=== PATIENT | female | born 1965 | race Caucasian/White ===

== ENCOUNTER → 2019-10-23 10:39 | Outpatient (BNVA) | payer MEDICARE, MEDICAID, SELFPAY | PROVIDERS: Referring Provider Family Medicine; Visit Provider Nurse Practitioner Adult Health | DX: G43.009 Migraine without aura, not intractable, without status migrainosus (principal); G44.40 Drug-induced headache, not elsewhere classified, not intractable; E11.9 Type 2 diabetes mellitus without complications | CPT/HCPCS: 99204 ==

== ENCOUNTER 2024-02-21 15:41 | Outpatient (CLI) | payer MEDICARE, MEDICAID, SELFPAY ==
--- NOTE | 2024-02-21 14:34 | DI.RAD_ITS ---
Exam(s) XR KNEE LT 1V XR STANDING ALIGNMENT EXAM: XR STANDING ALIGNMENT CLINICAL HISTORY: TKR Planning. TECHNIQUE: 2D digital imaging was performed. Standing AP views were performed from the pelvis throu gh the ankles. COMPARISON: CR XR KNEE LT 1V from 02/21/2024 FINDINGS: BONES: No acute fracture is present. No bony destructive lesion is seen. Leg length discrepancy: Prostate 15 millimeter overall leg length discrepancy, with the right femor al head projecting superior to the left. JOINTS: Knees: Right total knee prosthesis. Severe degenerative changes of the medial femoral tibi al joint of the left knee with periarticular spurring. There is varus angulation. The ankle joints are unremarkable. The hip joints are unremarkable. SOFT TISSUE: IUD in place. IMPRESSION: Severe degenerative changes of the medial femoral tibial joint space of the left knee. Right knee pr osthesis is unremarkable.. Proximal 1.5 centimeter overall leg length discrepancy. DATA REPOSITORY: RADIATION DOSE DELIVERED:
== END 2024-02-21 15:42 | disposition home or self-care (01) ==
LOC: DIORS 15:41
PROVIDERS: PCP Physician Assistant; Referring Provider Physician Assistant; Visit Provider Student in an Organized Health Care Education/Training Program
DX: M17.12 Unilateral primary osteoarthritis, left knee (principal)
CPT/HCPCS: 99203; 73560; 77073

== ENCOUNTER → 2024-05-29 07:51 | Outpatient (BNVA) | payer MEDICARE, MEDICAID, SELFPAY | PROVIDERS: PCP Emergency Medicine; Referring Provider Physician Assistant; Visit Provider Student in an Organized Health Care Education/Training Program ==

== ENCOUNTER 2024-09-06 09:43 | Day surgery (SDC) | payer MEDICARE, MEDICAID, SELFPAY ==
[2024-09-06 10:00] VITALS: BP 143/79; PULSE 77; RESP 16; TEMP 36; O2SAT 100
[2024-09-06] MEDS: Acetaminophen 500 MG TAB 1000 MG PO (10:24)
[2024-09-06] MEDS: Celecoxib 200 MG CAP 400 MG PO (10:24)
[2024-09-06] MEDS: Gabapentin 300 MG CAP PO (10:25)
[2024-09-06] MEDS: Lactated Ringers 1,000 ML 80 ML IV (10:54)
--- NOTE | 2024-09-06 11:08 | ANES.PREOP_ITS ---
General Info Date of Service Date Performed: 09/06/24 Height: 5 ft 1 in Weight: 77.2 kg Body Mass Index (BMI): 32.1 Surgical Procedure: Operation Date: 09/06/24 13:10 Proposed Procedure Side Surgeon p Knee Total Arthroplasty Left Herminio Suazo MD Meds Allergies and Home Medications Allergies Allergy/AdvReac Type Severity Reaction Status Date / Time atorvastatin Allergy Liver pain Verified 09/06/24 10:16 fentanyl AdvReac Severe Other (See Verified 09/06/24 10:16 Comment) animal dander Allergy Mild Rhinitis Uncoded 09/06/24 10:16 Environmental Allergy Mild Rhinitis Uncoded 09/06/24 10:16 Fragrances Allergy Mild Headache, Uncoded 09/06/24 10:16 SOB Home Medication ?Medication ?Instructions ?Recorded metoprolol succinate 50 mg capsule 50 mg PO HS 05/19/21 sprinkle, ext. release 24 hr aspirin 81 mg tablet,delayed 81 mg PO DAILY 01/13/23 release (Adult Aspirin Regimen) alirocumab 75 mg/mL subcutaneous 75 mg subcut Q2W 10/18/23 pen injector (Praluent Pen) mecobalamin (vitamin B12) 500 mcg 500 mcg PO DAILY 10/18/23 chewable tablet multivitamin 0.5 tab PO DAILY 10/18/23 omeprazole 40 mg capsule,delayed 40 mg PO DAILY 10/19/23 release cholecalciferol (vitamin D3) 25 25 mcg PO DAILY 12/07/23 mcg (1,000 unit) capsule psyllium husk 3.4 gram/6 gram oral 3.4 g PO DIRECTED 02/21/24 powder (OneLAX Daily Fiber) gabapentin 100 mg capsule 100 mg PO TID 06/14/24 glimepiride 2 mg tablet 2 mg PO DAILY 06/14/24 magnesium gluconate 500 mg tablet 500 mg PO DAILY 06/14/24 tirzepatide 5 mg/0.5 mL 5 mg subcut DIRECTED 09/05/24 subcutaneous pen injector (Mounjaro) Current Visit Medications: Current Medications Generic Name Dose Route Start Last Admin Trade Name Freq PRN Reason Stop Dose Admin Acetaminophen 1,000 mg 09/06/24 06:00 09/06/24 10:24 Acetaminophen 500 Mg Tab PO 09/06/24 23:59 1,000 mg PREOP IRINA Administration Acetaminophen 1,000 mg 09/06/24 07:38 Acetaminophen 500 Mg Tab PO 10/06/24 07:37 TID PRN PRN Analgesia Celecoxib 400 mg 09/06/24 06:00 09/06/24 10:24 Celecoxib 200 Mg Cap PO 09/06/24 23:59 400 mg PREOP IRINA Administration Docusate Sodium 100 mg 09/06/24 07:38 Docusate Sodium 100 Mg Cap PO 10/06/24 07:37 BID PRN PRN Constipation Gabapentin 300 mg 09/06/24 06:00 09/06/24 10:25 Gabapentin 300 Mg Cap PO 09/06/24 23:59 300 mg PREOP IRINA Administration Ringer's Solution 1,000 mls @ 80 mls/hr 09/06/24 06:00 09/06/24 10:54 IV 09/06/24 23:59 80 mls/hr INFUSION IRINA Administration Cefazolin Sodium/Dextrose 2 gm in 50 mls @ 100 mls/hr 09/06/24 06:00 Ancef Duplex IVPB 09/06/24 23:59 PREOP IRINA Tranexamic Acid/Sodium Chloride 1,000 mg in 100 mls @ 600 mls/hr 09/06/24 06:00 IVPB 09/06/24 23:59 PREOP IRINA IV Miscellaneous Supplies 1 each 09/06/24 06:00 Iv Access IV 09/06/24 23:59 DIRECTED IRINA Ondansetron HCl 4 mg 09/06/24 07:38 Ondansetron 4 Mg/2 Ml Vial IVP 10/06/24 07:37 Q6H PRN PRN Nausea Oxycodone HCl 0 mg 09/06/24 07:38 Oxycodone 5 Mg Tab PO 10/06/24 07:37 Q3H PRN PRN Pain Polyethylene Glycol 17 gm 09/06/24 07:38 Polyethylene Glycol 3350 17 Gm Packet PO 10/06/24 07:37 BID PRN PRN Constipation Sodium Chloride 0 ml 09/06/24 06:00 Normal Saline Flush 10 Ml Syr IV 09/06/24 23:59 PRN PRN Sodium Chloride 0 ml 09/06/24 06:00 Normal Saline 10 Ml Vial IJ 09/06/24 23:59 DIRECTED PRN Sterile Water 0 ml 09/06/24 06:00 Water,Injection,Sterile 10 Ml Vial IJ 09/06/24 23:59 DIRECTED PRN Tranexamic Acid 1,300 mg 09/06/24 07:38 Tranexamic Acid 650 Mg Tab PO 09/06/24 23:[address] [facility] Active Problems Active Problems: Problem Status Onset Code Conductive hearing loss, external ear Acute H90.2 Osteoarthritis of left knee Chronic M17.12 Impacted cerumen, bilateral Acute H61.23 Acute otitis externa of left ear Acute H60.502 Otalgia of left ear Acute H92.02 Chronic serous otitis media, right ear Acute H65.21 Recurrent acute serous otitis media of right ear Acute H65.04 Headache Acute R51.9 Tobacco abuse Acute Z72.0 Discomfort of right ear Acute H92.01 Sensorineural hearing loss, bilateral Acute H90.3 Conductive hearing loss in right ear Acute H90.11 Acute serous otitis media, right ear Acute H65.01 Medication overuse headache Acute G44.40 Migraine headache without aura Acute G43.009 Heart murmur Acute R01.1 Asthma Chronic J45.909 Obesity Chronic E66.9 Hyperlipidemia Acute E78.5 Type 2 diabetes mellitus Acute E11.9 Conductive hearing loss, bilateral Acute H90.0 Chronic serous otitis media, bilateral Acute H65.23 Allergic rhinitis due to allergen Acute J30.9 Dysfunction of left eustachian tube Acute H69.82 Non-recurrent acute serous otitis media of right ear Acute H65.01 Medical History Medical History History of echocardiogram 01/18/20 delivery delivered Impacted cerumen of left ear Cellulitis of right lower limb Complex regional pain syndrome Lumbago of lumbar region with sciatica Contusion of right knee On [facility] drug therapy Suicidal thoughts Generalized abdominal pain Diarrhea Chest pain Dyspnea on exertion Localized edema Retrograde amnesia pt. states this was stress related Fatigue History of muscle pain Backache symptom Lumbar radiculopathy History of neck pain Arthropathy Idiopathic osteoarthritis Impetigo Abscess of groin Abnormal uterine bleeding Macromastia WATKINS (nonalcoholic steatohepatitis) Enterocolitis Diaphragmatic hernia Intrinsic asthma Acute sinusitis Conductive hearing loss Otalgia Eustachian tube disorder Chronic serous otitis media Chronic infective otitis externa Obstructive sleep apnea Insomnia Depressive disorder Postconcussion syndrome Adjustment disorder Tobacco dependence Surgical History Surgical History History of shoulder surgery Right shoulder, 06/17/2021, [facility] Dr. Mancini History of bunionectomy 2014 History of tympanoplasty of right ear 1979 History of tonsillectomy History of dilation and curettage 1984 H/O tubal ligation Hx of elbow surgery Rt elbow 1998 History of orthopedic surgery History of cholecystectomy 2012 Hx of colonoscopy H/O left knee surgery 2007, 2016-pt states this is suppose to be her RIGHT KNEE not her left done twice History of selective injection of anesthetic agent around lumbar nerve root H/O myringotomy Artificial knee joint present Tobacco Smoking/Tobacco Use Status: Former Tobacco Use Passive smoking exposure: Yes Alcohol Alcohol Intake: current Alcohol intake frequency: a few times a month Substance Use Substance use: Never Substance use type: does not use Vital Signs and Lab Results Vital Signs Most Recent Vital Signs in EMR: Most Recent Vital Signs Temp Pulse Resp BP Pulse Ox 36 C L 77 16 143/79 H 100 09/06/24 10:00 09/06/24 10:00 09/06/24 10:00 09/06/24 10:00 09/06/24 10:00 Point of Care Results Point of Care Results: Finger Stick Blood Glucose 112 09/06/24 10:06 Lab Results Blood Type / Crossmatch: No Data to Display Complete Blood Count: No Data to Display Complete Metabolic Panel: No Data to Display Liver Function Panel: No Data to Display Coagulation Panel: No Data to Display Cardiac Panel: No Data to Display Arterial Blood Gas: No Data to Display Venous Blood Gas: No Data to Display Pancreas Panel: No Data to Display Thyroid Panel: No Data to Display Infectious Disease: No Data to Display Blood Cultures: No Data to Display Toxicology Panel: No Data to Display Anesthesia Assessment and Plan Anesthesia History Personal History: PONV Family History: No Family History of Anesthesia Complications Exercise Tolerance Exercise Tolerance: Metabolic Equivalents>4 Pertinent Negatives Pertinent Negatives: No Symptoms of GERD and No History of CVA/TIA Cardiac & Pulmonary Exam Cardiac Exam: Normal S1/S2 Heart Sounds Pulmonary Exam: Clear Bilateral Breath Sounds Implantable Cardiac Device Does patient have a Pacemaker or an ICD?: No Airway Exam Known Difficult Airway: No Mallampati Class: 2 Mouth Opening: Normal (> 3cm) Thyromental Distance: Less than 3 cm Neck Range of Motion: Full ROM Neck Circumference: Normal Teeth Condition: Normal Dentition ASA Classification ASA Score: ASA 3 Emergency Case?: No NPO Status NPO Status: NPO Clears >2 hours, Solids >8 hours Anesthesia Plan Resuscitation Status: Full Code Anesthesia Technique: Spinal Anesthesia Airway Planned: Natural Airway Pain Management: Surgeon and patient request nerve block Monitors Used: Standard Monitors Preoperative Comments:: Pt. requesting to not use fentanyl, unclear if this was cause of significant N/V after last surgery at [place] 2 years ago. Would like to avoid all medications that make her feel out of control. Discussed that we would minimize anesthesia medications but not guaranty she would not feel like this. She understands and will proceed further.
[2024-09-06 11:09] VITALS: BMI 32.1
--- NOTE | 2024-09-06 12:02 | HPE_ITS ---
Assessment and Plan Assessment and plan (1) Osteoarthritis of left knee: Status: Chronic Assessment and plan: Samuel is a 59-year-old active female who presents today for her left knee. She has worked on her diabetes and has much better glucose control, and within acceptable limits. She desires to proceed with left knee replacement. I once again reviewed surgical replacement of the knee. I reviewed the necessary time for rehabilitation following the procedure. Furthermore, I went over in detail the possible complications of knee replacement. These include but are not limited to bleeding, infection, pain, stiffness, weakness, damage to nerves, damage to vessels, damage to muscle and tendon, fracture, leg length inequality, wound healing complications, instability, component loosening, and blood clot. Questions were answered. I again expressed that this is a surgery to improve functional quality of life. After a review of the presented information and risks, Samuel desired to proceed. History of Present Illness History of Present Illness Chief Complaint: Left Knee Pain Narrative: Samuel is a 59-year-old female who is here today for her left knee. She has known arthritis about the left knee. She has failed other nonoperative options and is here today for left knee replacement. Unfortunately, she has had labile blood glucose control and has had her knee replacement postponed previously. She now has much better control with a regular host of medications and a fructosamine well within acceptable limits. She denies any other recent illness. No sick contacts. No chest pain or shortness of breath. She has had some known irregular heartbeat which is followed by cardiology and is stable. No other acute changes to her medical history. Review of Systems All systems reviewed & are unremarkable except as noted in HPI and below PFSH All Active Problems Conductive hearing loss, external ear (Acute) Osteoarthritis of left knee (Chronic) Impacted cerumen, bilateral (Acute) Acute otitis externa of left ear (Acute) Otalgia of left ear (Acute) Chronic serous otitis media, right ear (Acute) Recurrent acute serous otitis media of right ear (Acute) Headache (Acute) Tobacco abuse (Acute) Discomfort of right ear (Acute) Sensorineural hearing loss, bilateral (Acute) Conductive hearing loss in right ear (Acute) Acute serous otitis media, right ear (Acute) Medication overuse headache (Acute) Migraine headache without aura (Acute) Heart murmur (Acute) Asthma (Chronic) Obesity (Chronic) Hyperlipidemia (Acute) Type 2 diabetes mellitus (Acute) Conductive hearing loss, bilateral (Acute) Chronic serous otitis media, bilateral (Acute) Allergic rhinitis due to allergen (Acute) Dysfunction of left eustachian tube (Acute) Non-recurrent acute serous otitis media of right ear (Acute) Medical History History of echocardiogram 01/18/20 delivery delivered Impacted cerumen of left ear Cellulitis of right lower limb Complex regional pain syndrome Lumbago of lumbar region with sciatica Contusion of right knee On computer terminal operator drug therapy Suicidal thoughts Generalized abdominal pain Diarrhea Chest pain Dyspnea on exertion Localized edema Retrograde amnesia pt. states this was stress related Fatigue History of muscle pain Backache symptom Lumbar radiculopathy History of neck pain Arthropathy Idiopathic osteoarthritis Impetigo Abscess of groin Abnormal uterine bleeding Macromastia WATKINS (nonalcoholic steatohepatitis) Enterocolitis Diaphragmatic hernia Intrinsic asthma Acute sinusitis Conductive hearing loss Otalgia Eustachian tube disorder Chronic serous otitis media Chronic infective otitis externa Obstructive sleep apnea Insomnia Depressive disorder Postconcussion syndrome Adjustment disorder Tobacco dependence Surgical History History of shoulder surgery Right shoulder, 06/17/2021, [facility] Dr. Mancini History of bunionectomy 2014 History of tympanoplasty of right ear 1979 History of tonsillectomy History of dilation and curettage 1984 H/O tubal ligation Hx of elbow surgery Rt elbow 1998 History of orthopedic surgery History of cholecystectomy 2012 Hx of colonoscopy H/O left knee surgery 2007, 2017-pt states this is suppose to be her RIGHT KNEE not her left done twice History of selective injection of anesthetic agent around lumbar nerve root H/O myringotomy Artificial knee joint present Family History Father Heart disease Myocardial infarction Mother COPD (chronic obstructive pulmonary disease) Diabetes Hyperlipidemia Hypertension Cerebrovascular disease Peripheral vascular disease CHF (congestive heart failure) Stroke Heart disease Sister Diabetes Family hx of colon cancer MVA (motor vehicle accident) Brother Diabetes Son Diabetes Daughter No problems noted. Social History Smoking/Tobacco Use Status: Former Tobacco Use Quit Date: 10/18/22 Smoking risk assessment performed?: Yes Alcohol Intake: current Alcohol Intake frequency: a few times a month Drug use: Never Substance use type: does not use Housing: house Number of Children: 2 Pets and animals: Yes Pets and animals: cat(s) What is your relationship status?: Panel score (0-1 are the most socially isolated patients): 0 Seatbelt use: always Do you feel safe at home: Yes Do you feel safe in your relationship?: Yes Meds Allergies and Home Medications Allergies Allergy/AdvReac Type Severity Reaction Status Date / Time atorvastatin Allergy Liver pain Verified 09/06/24 10:16 fentanyl AdvReac Severe Other (See Verified 09/06/24 10:16 Comment) animal dander Allergy Mild Rhinitis Uncoded 09/06/24 10:16 Environmental Allergy Mild Rhinitis Uncoded 09/06/24 10:16 Fragrances Allergy Mild Headache, Uncoded 09/06/24 10:16 SOB Home Medications ?Medication ?Instructions ?Recorded ?Confirmed ?Type metoprolol succinate 50 mg capsule 50 mg PO HS 05/19/21 09/06/24 History sprinkle, ext. release 24 hr aspirin 81 mg tablet,delayed 81 mg PO DAILY 01/13/23 09/05/24 History release (Adult Aspirin Regimen) alirocumab 75 mg/mL subcutaneous 75 mg subcut Q2W 10/18/23 09/05/24 History pen injector (Praluent Pen) mecobalamin (vitamin B12) 500 mcg 500 mcg PO DAILY 10/18/23 09/06/24 History chewable tablet multivitamin 0.5 tab PO DAILY 10/18/23 09/06/24 History omeprazole 40 mg capsule,delayed 40 mg PO DAILY 10/19/23 09/06/24 History release cholecalciferol (vitamin D3) 25 25 mcg PO DAILY 12/07/23 09/06/24 History mcg (1,000 unit) capsule psyllium husk 3.4 gram/6 gram oral 3.4 g PO DIRECTED 02/21/24 09/06/24 History powder (OneLAX Daily Fiber) gabapentin 100 mg capsule 100 mg PO TID 06/14/24 09/06/24 History glimepiride 2 mg tablet 2 mg PO DAILY 06/14/24 09/06/24 History magnesium gluconate 500 mg tablet 500 mg PO DAILY 06/14/24 09/06/24 History tirzepatide 5 mg/0.5 mL 5 mg subcut DIRECTED 09/05/24 09/05/24 History subcutaneous pen injector (iMkel) Exam Const General: cooperative, healthy appearing, comfortable and no acute distress Resp Effort & Inspection: normal respiratory effort Auscultation: clear to auscultation bilaterally Cardio Rate: regular rate Rhythm: regular rhythm Results Last Vital Signs Temp 36 C L 09/06/24 10:00 Pulse 77 09/06/24 10:00 Resp 16 09/06/24 10:00 BP 143/79 H 09/06/24 10:00 Pulse Ox 100 09/06/24 10:00
[2024-09-06 12:15] VITALS: BP 117/70; PULSE 67; PULSE 72; RESP 22; TEMP 36.3; O2SAT 99
--- NOTE | 2024-09-06 12:33 | W.PM.DSUDISC ---
Date of service: 09/06/24 Discharge Plan Disposition Patient Disposition: Home Condition: Good Discharge Details Reason For Visit: TKR Attending Provider: Herminio Suazo Primary Care Provider: Debo Tenorio Home Meds and New Rx's Prescriptions: New celecoxib 200 mg capsule 200 mg PO BID Qty: 60 0RF aspirin 81 mg tablet,delayed release (DR/EC) 81 mg PO BID Qty: 60 0RF acetaminophen 500 mg tablet 1,000 mg PO TID Qty: 90 3RF gabapentin 300 mg capsule 300 mg PO QHS Qty: 14 0RF oxycodone 5 mg tablet 5 mg PO Q4H PRNQty: 18 0RF Continued Praluent Pen 75 mg/mL pen injector 75 mg subcut Q2W mecobalamin (vitamin B12) 500 mcg tablet,chewable 500 mcg PO DAILY multivitamin Tablet 0.5 tab PO DAILY OneLAX Daily Fiber 3.4 gram/6 gram powder 3.4 g PO DIRECTED metoprolol succinate 50 mg capsule,sprinkle,ER 24hr 50 mg PO HS omeprazole 40 mg capsule,delayed release(DR/EC) 40 mg PO DAILY cholecalciferol (vitamin D3) 25 mcg (1,000 unit) capsule 25 mcg PO DAILY glimepiride 2 mg tablet 2 mg PO DAILY Patient Comments: 4mg bid gabapentin 100 mg capsule 100 mg PO TID magnesium gluconate 500 mg tablet 500 mg PO DAILY Mounjaro 5 mg/0.5 mL pen injector 5 mg SUBCUT DIRECTED Patient Comments: INJECT 5 MG SUBCUTANEOUSLY ONCE A WEEK Discontinued aspirin [Adult Aspirin Regimen] 81 mg tablet,delayed release (DR/EC) 81 mg PO DAILY Discharge Instructions Additional Instructions: Total Knee Discharge Instructions Activity: The most important activity is to walk and to work on gentle motion (both flexion and extension). You should try to take short walks a few times a day. It is important that when resting you work on keeping the knee straight. Avoid putting a pillow behind the knee as this will encourage flexion. Work on range of motion exercises as provided by Physical Therapy. - Start outpatient physical therapy within 2 weeks. - You should wear the DEVYN hose on both legs for 2 weeks. You may remove these at night. You may also use any compression sock in place of the DEVYN hose. - Utilize [employer] to review exercises, see videos on exercises and obtain basic information pertaining to your surgery and your recovery. Dressing: Remove the Ramon wrap by 2 days after your surgery and put on the DEVYN stocking given to you from the hospital. Keep the surgical dressing (underneath the RAMON wrap) in place for at least one week. After the first week it may be removed and replaced with light gauze and tape or nothing. The wound and dressing may get wet after 3 days but avoid soaking the dressing or otherwise it will need to be changed. Many people prefer covering the dressing with cling wrap (saran wrap) to minimize it from getting soaked. If it gets wet, just pat dry. If it starts to peel off then it will need to be changed. Medications: - You should take Tylenol and anti-inflammatory Celebrex as your primary pain control medications. If the Celebrex is too expensive or not covered, please call the office for another alternative (Advil/Ibuprofen or Naproxen/Aleve) - You have been prescribed a stronger pain medication Oxycodone for breakthrough pain, take as needed as prescribed. - You will continue your omeprazole to help reduce stomach acid and reflux. - You should take your morning and afternoon does as prescribed of Gabapentin but take this increased dose of 300mg at nighttime to help with nerve pain. - You will be taking Aspirin 81mg twice a day for DVT prevention unless instructed otherwise. - If you have constipation you should take Colace or Miralax (both [id number]). It takes most people 3-4 days to have a bowel movement. Follow-up: 2 weeks If you have any acute concerns or questions, please do not hesitate to contact the office at [phone]. You may contact Dr. Suazo with any questions after hours through the hospital at [phone] or on his cell phone at [phone]. Referrals: Herminio Suazo MD [ [facility] STAFF PHYSICIAN] - Equipment/Supplies: Walker Activity:: Activity as Tolerated Shower/Bathe:: 72 hours Diet:: As Tolerated Discharge Orders Discharge Orders: Discharge Order (Routine); Ordered 09/06/24 Ordered By: Rufus Dial DS: Diagnosis Discharge Diagnosis (1) Osteoarthritis of left knee: Status: Chronic
[2024-09-06] MEDS: ceFAZolin 2 GM/50 ML BAG IVPB (12:55)
[2024-09-06] MEDS: TRANEXAMIC ACID/SOD. CHL. 1,000 MG/100 ML BAG 600 MG IVPB (13:02)
--- NOTE | 2024-09-06 13:57 | ROE_ITS ---
Operative Note Operative Note PRE-OP DIAGNOSIS: Left Knee Osteoarthritis POST-OP DIAGNOSIS: same PROCEDURE: Left Total Knee Replacement SURGEON: Herminio Suazo EXTRUSION MACHINE OPERATOR: Ruben Dial ANESTHESIA TYPE: Spinal Refer to Anesthesia Record ESTIMATED BLOOD LOSS: 50 PATHOLOGY: none sent TOURNIQUET TIME: 0 COMPLICATIONS: None Patient was transported to: PACU Patient's condition: stable Implants: 1. Depuy Attune Cementless Cruciate Retaining Femoral Component, Size 4 2. Depuy Attune Cementless Fixed Bearing Tibial Component, Size 3 3. Depuy Attune 4x6mm CR/FB Poly 4. Depuy Attune Patellar Component, Size 35 Indications: I have seen Samuel in clinic for symptoms of knee arthritis, confirmed with radiographic findings. She has exhausted nonoperative methods and was having significant limitations in daily function and desired better function and less pain. I discussed the technical details of a knee replacement. I explained the risks of the procedure to include, but not limited to, bleeding, infection, pain, stiffness, fracture, damage to nerves and vessels, damage to muscles and tendons, loosening, need for repeat procedure, blood clot and cardiopulmonary demise. Despite these risks, Samuel elected to proceed. Findings: There was significant signs of arthritis throughout the knee, worse medially. Procedure Description: Samuel was greeted in the preoperative holding area where the correct side was identified and marked. The consent was reviewed with the patient and signed. The history and physical was updated. All questions were answered. Preoperative medications were administered: Acetaminophen 1000mg, Celebrex 400mg, and Gabapentin 300mg. An adductor canal block was then administered by the anesthesia team in the DSU. She was taken back to the operating room. A spinal anesthestic was then admini stered. The patient was placed into the supine position on the operating room table. Posts were placed for positioning during the procedure. All bony prominences were well padded. Prophylactic antibiotics in the form of Cefazolin were administered. 1g of Tranxemic Acid was given intravenously within 30 minutes of incision. The left leg was then prepped with Chloraprep and draped in a standard fashion with impervious stockinette. A second prep with Chloraprep was performed prior to application of Iodine impregnated skin protection. A timeout to confirm correct identity, side and site, procedure, allergies, anesthesia, and medical concerns was performed. With the knee in some flexion, a midline incision was made overlying the knee. Full thickness skin flaps were raised once the extensor mechanism was encountered. These were raised medially and laterally. Any bleeding was controlled with electrocautery. Once the extensor mechanism was fully exposed, a medial parapatellar arthrotomy was performed in a flexed position. All bleeding from the arthrotomy and the geniculate arteries was coagulated. A medial subperiosteal peel was performed with electrocautery to the midcoronal plane. The fat pad was removed while keeping the patellar tendon protected. The anterior distal femur synovium was removed for later visualization. The ACL and PCL were resected and the anterior horn of the lateral meniscus was transected. The knee was then flexed with the patella everted. Large osteophytes from the tibia were removed. Large osteophytes from the femur were removed. Using a step drill, and based on preoperative templating, the femoral canal was entered. This was done with a step drill without any difficulty. The intramedullary distal femoral cut guide was inserted, set to a 5 degree valgus cut and 9mm cut thickness. The distal femoral cut guide was then held in position and pinned. With the soft tissues protected, the distal cut was performed. This was passed over a few times to ensure a planar cut. I then turned attention to the tibia. The extramedullary guide was placed onto the leg. The distal aspect was slid medial to adjust for position of center of ankle and stay in line with shaft of the tibia. Approximately 3-5 degrees of posterior slope was kept in the proximal cutting guide. The center of the guide was aligned with the PCL. The stylus was used to assess cut thickness. The medial side, most involved side, was set for a 5mm cut, corresponding to 8mm laterally. This was then held in position and pinned into place with 2 additional pins and a cross pin for stability. The medial and lateral collateral ligaments were protected and the cut was performed. With this completed, it was assessed and noted to be of appropriate dimensions. The guide was removed. A spacer block was inserted and the knee was brought into extension. The 6mm spacer block provided full extension, without hyperextension and with stability of both the medial and lateral collateral ligaments was assessed. The pins from the femur and the tibia were then removed. The distal femur was then sized. The anterior stylus was placed onto the lateral ridge of the anterior femur. This indicated a size 4 femur. The external rotation of the guide was adjusted to 3 degrees to match the epicondylar axis, perpendicular to Webster?s line. The 4-in-1 cutting guide was the placed. The posterior medial femur cut was evaluated and appeared of good thickness. The spacer block was inserted underneath the cutting guide and stability was confirmed in 90 degrees of flexion. An mane wing was used to confirm appropriate position of the anterior cut to avoid notching. This cutting guide was ensured to be flush on the cut surface and then pinned into p lace with headed pins. While protecting the soft tissues, quad tendon, and collateral ligaments, the anterior and posterior cuts were performed with a saw. The central two pins were removed and the posterior and anterior chamfers were cut next. The notch-cutting guide was placed. This was pinned to lateralize the femoral component as much as possible while keeping it flush on the cut surface. This was then pinned into position. A reciprocating saw was used to make the notch cut. A rasp smoothed the cut surfaces. The medial and lateral menisci were removed. A trial femoral component was then inserted, impacted down to the cut surfaces, and the lug holes were drilled. A provisional trial tibial component was placed and the knee was brought through range of motion. There was noted to be excellent extension and flexion. There was no significant instability. The patella was tracking without thumbs. A size 6mm polyethylene component provided the best range of motion and stability with less than 2mm gapping with medial and lateral stress and full extension without significant hyperextension. The tibial cut surface was fully exposed. The tibia was then sized as a 3. The tibia had been previously marked during trialing to correspond to the center of the tibial component to help with rotation. The trial was aligned to this ruben, approximately rotated to the medial 1/3rd of the tibial tubercle. The trial was pinned into place. The tibia was prepared with a reamer and a keel punch and lug holes. The knee was then brought into extension and the patella was measured as 25mm. Using the patellar clamp and cut guide, this was resected to a flat surface with at least 13mm of thickness remaining. The size 35 patella fit the best. This was oriented and then clamped into position. The lugs were drilled. The trial components were removed. The final components were opened on the back table. The periosteal and capsular tissues, especially posteriorly, around the knee were then systematically injected with a periarticular cocktail consisting of 246mg of Ropivacaine, 0.5mg of Epinephrine, 0.08mg of Clonidine, and 30mg of Ketorolac, diluted to 100cc. On the back table, with the implants opened. The cement was mixed. One batch of high viscosity cement was prepared with vacuum assistance. After the cement was ready a small amount was placed on the cut surface of the patella and the patellar button was clamped into position and held. The cementless knee components were placed. Starting with the tibial component, the tibia was subluxed anteriorly and the lug holes of the component were lined up. The tibia was then impacted with an impactor and mallet until the tibial component was in contact with the tibia. Then, the femoral component was inserted. The lug holes were aligned and the component was impacted into position. The final polyethylene component was inserted. The knee was irrigated with Surgiphor Betadine solution. This was allowed to sit in the knee for 3 minutes and then it was irrigated out with saline. After the cement had finally cured, approximately 15min, the clamp was removed from the patella and the knee was taken through range of motion. The patella was tracking with a no-thumbs technique. The capsule was then reapproximated with a No. 1 Vicryl at multiple locations. The capsule was finally closed with a No. 2 Stratafix, barbed suture. Deep tissues were then reapproximated with 0 Vicryl and 2-0 Vicryl. The skin was closed with a running 3-0 Monocryl in a subcuticular fashion. This was reinfo rced with skin glue. A Mepilex silver dressing was applied along with a [id number] MAYANK wrap. A CryoCuff was applied. Samuel was transferred to the hospital bed without difficulty an suffering no apparent complication. Samuel has a good prognosis. Physical therapy will start today and without restrictions, weight-bearing as tolerated. Aspirin 81mg BID will be used for DVT prophylaxis. Date of Procedure: 09/06/24
[2024-09-06 14:15] VITALS: BP 114/69; PULSE 72; RESP 18; TEMP 36.2; O2SAT 97
--- NOTE | 2024-09-06 14:46 | W.ANESPOSTOP ---
Postoperative Evaluation Date, Time and Location Date Performed: 09/06/24 Time Performed: 14:18 Patient Location: Day Surgery Unit Vital Signs Most Recent Imported Vital Signs: Most Recent Vital Signs Temp Pulse Resp BP Pulse Ox 36.2 C L 72 18 114/69 97 09/06/24 14:15 09/06/24 14:15 09/06/24 14:15 09/06/24 14:15 09/06/24 14:15 Pain Score Most Recent Pain Score: Most Recent Pain Score Pain Level 0 09/06/24 14:15 Assessment Mental Status: Awake (Alert & Oriented to Patient Baseline) Airway and Respiratory Function: Patent airway with normal (patient baseline) respiratory exam Cardiovascular Function: Hemodynamically Stable Hydration Status: Adequately Hydrated Nausea & Vomiting: No Nausea or Vomiting Pain: Pt. Denies Any Pain Peripheral Nerve Block: Regional nerve block not resolved at time of post operative discharge
[2024-09-06 14:50] VITALS: BP 125/78; PULSE 70; RESP 18; TEMP 36.5; O2SAT 100
--- NOTE | 2024-09-06 14:54 | W.ANESNERVE ---
Nerve Block Single Injection Procedure Date and Time Date Performed: 09/06/24 Procedure Start: 12:15 Location Where Procedure Performed Procedure Location: Day Surgery Unit Reason Performed: Postoperative Analgesia Requesting Provider: Herminio Suazo Timeout Performed Timeout Performed: Yes Monitoring Used ECG, Blood Pressure, SpO2 and See EMR for corresponding vital signs Sterility Sterility: Hand Hygiene, Surgical Cap, Surgical Mask, Sterile Gloves and Chlorhexidine Sedation Given During Procedure Sedation Given (Indicate Dose Given): No Sedation given Patient Mental Status Patient Mental Status: Awake Nerve Block 1st Nerve Block: Laterality: Left Block Type: Adductor Canal Ultrasound Image Saved?: Yes Needle / Catheter Used: 100mm SonoPlex II Local Anesthetic Bolus (Indicate Dose Given): Lidocaine used for local infiltration of skin, Injected in 3-5ml increments after negative blood aspiration and Bupivacaine 0.25% Dose:: 20ml Additives (Indicate Dose Given): None Ultrasound: Sterile probe cover and gel used Nerve Stimulator: Not Used Paresthesia: None Procedure Tolerated: No Complications and Patient tolerated well Procedure Outcome: Successful Performed By: Prabhjot White
--- NOTE | 2024-09-06 15:34 | IN_ITS ---
PT Notes Visit Reasons: TKR Physical Therapy Day Surgery Initial Evaluation Date: 09/06/2024 Referring Doctor: ALICJA Mckeon PT Orders: PT CONSULT: S/p ortho Surgery Precautions: WBAT on the LE with AD. Patient Profile/Admitting Diagnosis: Candelario is a 59-year-old with degenerative joint disease of the left knee and status post left total knee arthroplasty on postoperative day 0. PMHX: All Active Problems Conductive hearing loss, external ear (Acute) Osteoarthritis of left knee (Chronic) Impacted cerumen, bilateral (Acute) Acute otitis externa of left ear (Acute) Otalgia of left ear (Acute) Chronic serous otitis media, right ear (Acute) Recurrent acute serous otitis media of right ear (Acute) Headache (Acute) Tobacco abuse (Acute) Discomfort of right ear (Acute) Sensorineural hearing loss, bilateral (Acute) Conductive hearing loss in right ear (Acute) Acute serous otitis media, right ear (Acute) Medication overuse headache (Acute) Migraine headache without aura (Acute) Heart murmur (Acute) Asthma (Chronic) Obesity (Chronic) Hyperlipidemia (Acute) Type 2 diabetes mellitus (Acute) Conductive hearing loss, bilateral (Acute) Chronic serous otitis media, bilateral (Acute) Allergic rhinitis due to allergen (Acute) Dysfunction of left eustachian tube (Acute) Non-recurrent acute serous otitis media of right ear (Acute) Medical History History of echocardiogram 01/18/20 delivery delivered Impacted cerumen of left ear Cellulitis of right lower limb Complex regional pain syndrome Lumbago of lumbar region with sciatica Contusion of right knee On fci drug therapy Suicidal thoughts Generalized abdominal pain Diarrhea Chest pain Dyspnea on exertion Localized edema Retrograde amnesia pt. states this was stress related Fatigue History of muscle pain Backache symptom Lumbar radiculopathy History of neck pain Arthropathy Idiopathic osteoarthritis Impetigo Abscess of groin Abnormal uterine bleeding Macromastia WATKINS (nonalcoholic steatohepatitis) Enterocolitis Diaphragmatic hernia Intrinsic asthma Acute sinusitis Conductive hearing loss Otalgia Eustachian tube disorder Chronic serous otitis media Chronic infective otitis externa Obstructive sleep apnea Insomnia Depressive disorder Postconcussion syndrome Adjustment disorder Tobacco dependence Surgical History History of shoulder surgery Right shoulder, 06/17/2021, [facility] Dr. Mancini History of bunionectomy 2014 History of tympanoplasty of right ear 1979 History of tonsillectomy History of dilation and curettage 1984 H/O tubal ligation Hx of elbow surgery Rt elbow 1999 History of orthopedic surgery History of cholecystectomy 2012 Hx of colonoscopy H/O left knee surgery 2007, 2017-pt states this is suppose to be her RIGHT KNEE not her left done twice History of selective injection of anesthetic agent around lumbar nerve root H/O myringotomy Artificial knee joint present Social History/Home Situation: Lives alone in a private home with 2 steps to enter. has friends and family who can provide needed support. Equipment Owned/DME: [employer] Subjective: Achy and sore at onset but felt better with movement and walking. Denied headache, chest pain, lightheadedness throughout session. Objective: General Observation: MAYANK wraps to L LE. Cryocuff to L knee. Mental Status: A and O x 4 Pain: 4-5/10 in the L knee ROM: Left Lower Extremity: Hip flexion WFL. Hip abduction WFL. Knee flexion 5 degrees to 100 degrees. Ankle dorsiflexion WFL. Ankle plantarflexion WFL. Right Lower Extremity: Hip flexion WFL. Hip abduction WFL. Knee flexion WFL. Ankle dorsiflexion WFL. Ankle plantarflexion WFL. Strength: Left Lower Extremity: Hip flexors 4-/5. Hip abductors 4-/5. Knee flexors 3-/5. Knee extensors 3-/5. Ankle dorsiflexors 5/5. Ankle plantarflexors 5/5.Hip flexors 5/5. Hip abductors 5/5. Knee flexors 5/5. Knee extensors 5/5. Ankle dorsiflexors 5/5. Ankle plantarflexors 5/5. Right Lower Extremity: Hip flexors 5/5. Hip abductors 5/5. Knee flexors 5/5. Knee extensors 5/5. Ankle dorsiflexors 5/5. Ankle plantarflexors 5/5. Sensation: Intact as to pain and light pressure in B LE Bed Mobility/Transfers: Minimal cueing provided for use of B hands as needed for support, movement sequence, AD management, and posture to reduce fall risk and minimize pain report Supine to sit stand by assist Sit to stand contact guard assist with FWW Stand to sit stand by assist with FWW Bed to chair stand by assist with FWW Gait: Facilitate safe and correct performance of level surface ambulation covering a distance of 8 feet using front walker with reciprocal heel-toe strength step through gait pattern requiring only stand by assist and minimal verbal cueing for limb movement sequence, AD management, weight distribution, and posture to minimize pain reported reduce fall risk. Gait: Guided patient with safe and correct negotiation of 3 x 4 inch steps 2 x 6 inch steps while holding onto bilateral rails with step to gait pattern increased knee flexion on the left during each ascent, hand placement/weight distribution on to B rails, to minimize pain reported reduce fall risk.limb movement seuqnce, and posture Balance: Static Sitting: Normal Dynamic Sitting: Normal Static Standing: Fair Dynamic Standing: Fair Special Tests: Mobility Limitations Standardized Measure [facility] AM-PAC 6 clicks Basic Mobility Inpatient Short Form: Raw Score: 23 CMS Score: 11% deficit Informed Consent/Education: Patient instructed in purpose of PT consult. Packet containing TKA exercise protocol has been given to patient. Education and training on initial set of exercises that can be done at home have been completed with patient. Trained patient with correct performance of exercises below to maximize motor control, joint flexibility, soft tissue extensibility of the L knee musculature: Access Code: [email or web address] URL: [email or web address] Date: 09/06/2024 Prepared by: Katelynn Lawrence Exercises - Supine Quad Set - 1 x daily - 7 x weekly - 1 sets - 10 reps - 5 hold - Supine Heel Slide - 1 x daily - 7 x weekly - 1 sets - 10 reps - 5 hold - Supine Ankle Pumps - 1 x daily - 7 x weekly - 1 sets - 10 reps - 5 hold - Small Range Straight Leg Raise - 1 x daily - 7 x weekly - 1 sets - 10 reps - 5 hold - Seated March - 1 x daily - 7 x weekly - 1 sets - 10 reps - 5 hold Assessment: Patient requires the use of a front-wheeled walker for all mobility ADl performance to maximize indepndence and reduce fall risk. Patient presents with clinical signs and symptoms consistent with current/admitting diagnoses that have resulted to mobility limitations, gait instability, generalized weakness, and impairment of motor control as demonstrated by the following impairment level findings: 1. Decreased strength to left knee major muscle groups 2. Impaired standing balance 3. Limitation of joint range of motion in left knee Impairments are contributing to the following functional limitations: 1. Inability to safely ambulate without assistive device 2. Increase completion time for mobility ADL performance 3. Increased fall risk Patient is assessed as a 20088 moderate complexity based on the following: History: 59-year-old female with impairment level findings, functional limitati ons, and past medical history as indicated above Examination: Demonstrable impairment in strength, balance, and mobility level with underlying impairments and functional limitations as documented above Presentation: Evolving Decision Makin moderate complexity Goals: N/A. PT evaluation and 1-2 treatment sessions only for functional mobility training using recommended AD and for HEP instruction. Plan of Care/Treatment Plan: N/A. PT evaluation and 1-2 treatment session only for functional mobility training using recommended AD and for HEP instruction. DISCHARGE RECOMMENDATIONS: Home when medically cleared by orthopedic surgeon. Recommend outpatient PT services in order to optimize functional mobility outcomes and facilitate return to independent community ambulation without an assistive device. TREATMENT CODE/TIME: 70694 x 28 minutes for 1 unit (15:34-16:02). Thank you for the opportunity to participate in the care of this patient. Katelynn Lawrnece PT, DPT, CLT [facility] [place], [place]
== END 2024-09-06 16:25 | disposition home or self-care (01) ==
PROVIDERS: PCP Emergency Medicine; Visit Provider Student in an Organized Health Care Education/Training Program
PROC: (CPT 27447; principal; 2024-09-06 13:00)
DX: M17.12 Unilateral primary osteoarthritis, left knee (principal)
CPT/HCPCS: 27447; 64447; 97162; C1776; J0665; J0690; J1100; J2003; J2250; J2401; J2405; J2704

== ENCOUNTER 2024-09-21 10:39 | Outpatient (CLI) | payer MEDICARE, MEDICAID, SELFPAY ==
--- NOTE | 2024-09-21 09:30 | DI.RAD_ITS ---
Exam(s) XR STANDING ALIGNMENT EXAM: XR STANDING ALIGNMENT CLINICAL HISTORY: 1ST POST OP S/P L TKA. TECHNIQUE: 2D digital imaging was performed. COMPARISON: CR XR STANDING ALIGNMENT from 02/21/2024 FINDINGS: 3 views There has been interval placement of a left knee prosthesis which appears satisfactory. The revision -type prostheses on the right side also appears satisfactory. Hips appear unremarkable as do the femurs and ankles. Bone density normal. No osseous lesions. IMPRESSION: Satisfactory appearance DATA REPOSITORY: RADIATION DOSE DELIVERED:
--- NOTE | 2024-09-21 09:30 | DI.RAD_ITS ---
Exam(s) XR KNEE LT 1V EXAM: XR KNEE LT 1V CLINICAL HISTORY: 1ST POST OP S/P L TKA. TECHNIQUE: 2D digital imaging was performed. COMPARISON: CR XR KNEE LT 1V from 02/21/2024 CR XR STANDING ALIGNMENT from 09/21/2024 FINDINGS: Single lateral view the left knee reveals satisfactory position alignment of the components of the pr osthesis. No fracture or loosening evident. No evidence of osteomyelitis. IMPRESSION: Satisfactory appearance DATA REPOSITORY: RADIATION DOSE DELIVERED:
== END 2024-09-21 10:40 | disposition home or self-care (01) ==
LOC: DIORS 10:39
PROVIDERS: PCP Emergency Medicine; Referring Provider Emergency Medicine; Visit Provider Physician Assistant
DX: Z96.652 Presence of left artificial knee joint (principal); Z47.1 Aftercare following joint replacement surgery
CPT/HCPCS: 99024; 73560; 77073

== ENCOUNTER → 2024-10-19 10:53 | Outpatient (BNVA) | payer MEDICARE, MEDICAID, SELFPAY | PROVIDERS: PCP Emergency Medicine; Referring Provider Emergency Medicine; Visit Provider Student in an Organized Health Care Education/Training Program | DX: Z47.1 Aftercare following joint replacement surgery (principal); Z96.652 Presence of left artificial knee joint | CPT/HCPCS: 99024 ==

== ENCOUNTER → 2024-11-27 10:16 | Outpatient (BNVA) | payer MEDICARE, MEDICAID, SELFPAY | PROVIDERS: PCP Emergency Medicine; Referring Provider Emergency Medicine; Visit Provider Student in an Organized Health Care Education/Training Program | DX: T84.82XA Fibrosis due to internal orthopedic prosthetic devices, implants and grafts, initial encounter (principal) | CPT/HCPCS: 99213 ==

== ENCOUNTER → 2025-01-22 09:31 | Outpatient (BNVA) | payer MEDICARE, MEDICAID, SELFPAY | PROVIDERS: PCP Emergency Medicine; Referring Provider Emergency Medicine; Visit Provider Physician Assistant | DX: T84.82XA Fibrosis due to internal orthopedic prosthetic devices, implants and grafts, initial encounter (principal) | CPT/HCPCS: 99213 ==